=== PATIENT | female | born 1980 | race Caucasian/White ===

== ENCOUNTER 2024-08-01 13:21 | Inpatient (IN) | payer OTHER ==
[2024-08-01] MEDS ORDERED: ACETAMINOPHEN INJECTION 100 ML ONE ×2 (14:38→20:29)
[2024-08-01 16:13] LABS: BASO % 0.5 % (0-2.0); EOS % 0.5 % (0-4.5); HEMATOCRIT 31.7 % (32.4-45.2); HEMOGLOBIN 10.1 GM/dL (10.7-15.3); LYMPH % 23.1 % (8-40); MCH 32.9 pg (25.7-33.7); MEAN CELL VOLUME 102.9 fl (80-96); MEAN PLT VOLUME 7.4 fl (7.5-11.1); MONO % 14.1 % (3.8-10.2); NEUT % 61.8 % (42.8-82.8); PLATELET COUNT 296 10^3/uL (134-434); RBC 3.08 M/mm3 (3.60-5.2); RDW 22.7 % (11.6-15.6); WHITE BLOOD COUNT 5.3 K/mm3 (4.0-10.0)
[2024-08-01] MEDS: SODIUM CHLORIDE 0.9% 500 ML INFUS.BAG IV ONE ×2 (16:22→19:46)
[2024-08-01] MEDS: ACETAMINOPHEN 1000 MG/100 ML BAG IVPB ONE ×2 (16:25→23:40)
[2024-08-01 16:42] LABS: POTASSIUM 3.4 mmol/L (3.5-5.1)
[2024-08-01 16:44] LABS: CALCIUM 8.6 mg/dL (8.5-10.1)
[2024-08-01 16:45] LABS: ALBUMIN 1.9 g/dl (3.4-5.0); BLOOD UREA NITROGEN 4.4 mg/dL (7-18); MAGNESIUM 1.8 mg/dL (1.8-2.4)
[2024-08-01 16:48] LABS: CREATININE 1.3 mg/dL (0.55-1.3); PHOSPHOROUS 2.1 mg/dL (2.5-4.9)
[2024-08-01 16:49] LABS: BILIRUBIN,TOTAL 0.8 mg/dL (0.2-1); TOT PROT 5.9 g/dl (6.4-8.2)
[2024-08-01 16:57] LABS: INR 2.3 (0.83-1.09); PROTHROMBIN TIME (PATIENT) 25.4 SEC (9.7-13.0)
[2024-08-01] MEDS ORDERED: HYDROmorphone HCl 2 MG/ML VIAL ONE (16:59)
[2024-08-01 17:00] LABS: ACTIVATED PTT 44.4 SECONDS (25.2-36.5)
[2024-08-01] MEDS: HYDROmorphone HCl 2 MG/ML VIAL IVPUSH ONE ×2 (17:05→19:32)
[2024-08-01 17:16] LABS: ANISOCYTOSIS 1+; MACROCYTOSIS 1+; TARGET CELLS 1+; TEAR DROP CELLS 1+
[2024-08-01] MEDS ORDERED: MAGNESIUM SULFATE IN WATER 2 GM/50 ML IVPB IVPB ONE (19:39)
[2024-08-01] MEDS ORDERED: KCL 10 MEQ IVPB 10 MEQ/100 ML INFUS.BAG IVPB ONE (19:39)
[2024-08-01] MEDS: MAGNESIUM SULFATE IN WATER 2 GM/50 ML IVPB IVPB ONE (19:46)
[2024-08-01] MEDS ORDERED: guaiFENesin 200 MG/10 ML 10 ML UNIT-DOSE CUPS PO PRN (23:43)
[2024-08-01] MEDS ORDERED: HYDROmorphone HCL 2 MG TABLET PO PRN (23:43)
[2024-08-01] MEDS ORDERED: ONDANSETRON 4 MG TABLET PO PRN (23:43)
[2024-08-01] MEDS: KCL 10 MEQ IVPB 10 MEQ/100 ML INFUS.BAG IVPB SCH (23:58)
[2024-08-02] MEDS ORDERED: HYDROmorphone HCL 2 MG TABLET PO PRN (00:25)
[2024-08-02] MEDS: ACETAMINOPHEN 1000 MG/100 ML BAG IVPB ONE (00:34)
[2024-08-02] MEDS ORDERED: HYDROmorphone HCL 2 MG TABLET ONE (00:36)
[2024-08-02] MEDS ORDERED: MELATONIN 5 MG TABLETS ONE (00:37)
[2024-08-02] MEDS: MELATONIN 5 MG TABLETS PO SCH (00:41)
[2024-08-02] MEDS: HYDROmorphone HCL 2 MG TABLET PO PRN (00:42)
[2024-08-02] MEDS ORDERED: PIPERACILLIN/TAZOB 2.25 GM 2.25 GM in DEXTROSE 5%-WATER - 50 ML IVPB SCH ×2 (02:00→10:00)
[2024-08-02] MEDS: PIPERACILLIN/TAZOB 2.25 GM 2.25 GM in DEXTROSE 5%-WATER - 50 ML IVPB SCH (03:21)
[2024-08-02] MEDS: VANCOMYCIN/WATER FOR INJ (PEG) 1,000 MG/200 ML BAG IVPB ONE (03:23)
[2024-08-02] MEDS ORDERED: VANCOMYCIN/WATER FOR INJ (PEG) 1,000 MG/200 ML BAG IVPB ONE (06:00)
[2024-08-02] MEDS: MEROPENEM 500 MG in DEXTROSE 5%-WATER 100 ML IVPB SCH ×2 (06:39→15:10)
[2024-08-02] MEDS: PANTOPRAZOLE 40 MG TABLET PO SCH (06:47)
[2024-08-02 08:40] LABS: HEMATOCRIT 30.5 % (32.4-45.2); HEMOGLOBIN 9.8 GM/dL (10.7-15.3); MCH 33.1 pg (25.7-33.7); MEAN CELL VOLUME 103.5 fl (80-96); MEAN PLT VOLUME 7.3 fl (7.5-11.1); PLATELET COUNT 263 10^3/uL (134-434); RBC 2.95 M/mm3 (3.60-5.2); RDW 22.6 % (11.6-15.6); WHITE BLOOD COUNT 7.3 K/mm3 (4.0-10.0)
[2024-08-02 08:41] LABS: PROTHROMBIN TIME (PATIENT) 22.5 SEC (9.7-13.0)
[2024-08-02 08:54] LABS: CHLORIDE 102 mmol/L (98-107); SODIUM 135 mmol/L (136-145)
[2024-08-02 09:05] LABS: ALBUMIN 1.8 g/dl (3.4-5.0); ANION GAP 10 mmol/L (4-13); CALCIUM 8.8 mg/dL (8.5-10.1); CO2 23 mmol/L (21-32); MAGNESIUM 2.3 mg/dL (1.8-2.4)
[2024-08-02 09:08] LABS: CREATININE 1.4 mg/dL (0.55-1.3); PHOSPHOROUS 2.8 mg/dL (2.5-4.9); SGOT/AST 30 U/L (15-37); SGPT/ALT 27 U/L (13-61)
[2024-08-02 09:09] LABS: BILIRUBIN,TOTAL 0.9 mg/dL (0.2-1); TOT PROT 5.5 g/dl (6.4-8.2)
[2024-08-02 09:11] LABS: ALK PHOS 158 U/L (45-117); GLUCOSE,RANDOM 49 mg/dL (74-106)
[2024-08-02] MEDS: APIXABAN 5 MG TABLET PO SCH (09:32)
[2024-08-02] MEDS: CLOPIDOGREL BISULFATE 75 MG TABLET (FP) PO SCH (09:32)
[2024-08-02] MEDS: POLYETHYLENE GLYCOL (HEALTHYLAX) 3350 17 GM PACKET PO SCH (09:32)
[2024-08-02] MEDS: LEFLUNOMIDE 10 MG TABLET PO SCH (10:08)
[2024-08-02] MEDS: TACROLIMUS ANHYDROUS 1 MG CAPSULE PO SCH (10:08)
[2024-08-02] MEDS: NORTRIPTYLINE HCL 50 MG CAPSULE PO SCH (10:09)
[2024-08-02] MEDS ORDERED: DEXTROSE 50%-WATER 25 GM/50 ML DISP.SYRIN ONE (10:10)
[2024-08-02] MEDS ORDERED: KCL 20 MEQ PREMIX BAG 20 MEQ/100 ML INFUS.BAG IVPB SCH (10:30)
[2024-08-02] MEDS: ACETAMINOPHEN 1000 MG/100 ML BAG IVPB PRN (10:45)
[2024-08-02] MEDS: KCL 10 MEQ IVPB 10 MEQ/100 ML INFUS.BAG IVPB SCH (10:45)
[2024-08-02] MEDS: DEXTROSE 50%-WATER - 25 GM/50 ML VIAL IVPUSH ONE (10:46)
[2024-08-02] MEDS: TRIMETHOBENZAMIDE HCL 200MG/2ML INJ IM PRN (12:05)
[2024-08-02] MEDS ORDERED: MEROPENEM 500 MG in DEXTROSE 5%-WATER 100 ML IVPB SCH (15:00)
[2024-08-02] MEDS ORDERED: TRIMETHOBENZAMIDE HCL 200MG/2ML INJ IM PRN (16:28)
[2024-08-02] MEDS: POTASSIUM CHLORIDE TABS 20 MEQ TABLET.ER (FP) PO ONE (17:19)
[2024-08-02] MEDS: AMINO ACIDS/PROTEIN HYDROLYS 30 ML LIQUID.PKT PO SCH (17:26)
[2024-08-02] MEDS: COLLAGENASE CLOSTRIDIUM HIST. 30 GRAMS TUBE TP SCH (19:16)
[2024-08-02] MEDS: HYDROmorphone HCl 2 MG/ML VIAL IVPB PRN (23:09)
[2024-08-02] MEDS: TACROLIMUS 0.5 MG CAPSULE PO SCH (23:11)
[2024-08-02] MEDS: ROSUVASTATIN CA 20 MG TABLET PO SCH (23:11)
[2024-08-03] MEDS: MEROPENEM 500 MG in DEXTROSE 5%-WATER 100 ML IVPB SCH (02:15)
[2024-08-03 08:26] LABS: HEMATOCRIT 33.9 % (32.4-45.2); HEMOGLOBIN 11.1 GM/dL (10.7-15.3); MCH 33.7 pg (25.7-33.7); MCHC 32.7 g/dl (32.0-36.0); MEAN CELL VOLUME 102.9 fl (80-96); MEAN PLT VOLUME 7.8 fl (7.5-11.1); PLATELET COUNT 302 10^3/uL (134-434); RDW 22.5 % (11.6-15.6); WHITE BLOOD COUNT 9.5 K/mm3 (4.0-10.0)
[2024-08-03] MEDS: SODIUM CHLORIDE 250 ML IV STA (09:39)
[2024-08-03] MEDS: NORTRIPTYLINE HCL 25 MG CAPSULE PO SCH (09:42)
[2024-08-03] MEDS: ONDANSETRON 4 MG/2 ML VIAL IVPB PRN (12:03)
[2024-08-03] MEDS ORDERED: SODIUM CHLORIDE 250 ML IV PRN (21:53)
[2024-08-04 10:26] LABS: BASO % 1.1 % (0-2.0); EOS % 0.2 % (0-4.5); HEMATOCRIT 29.5 % (32.4-45.2); HEMOGLOBIN 9.4 GM/dL (10.7-15.3); LYMPH % 13.1 % (8-40); MCH 32.9 pg (25.7-33.7); MCHC 31.9 g/dl (32.0-36.0); MEAN CELL VOLUME 103.2 fl (80-96); MEAN PLT VOLUME 7.2 fl (7.5-11.1); MONO % 11.2 % (3.8-10.2); NEUT % 74.4 % (42.8-82.8); PLATELET COUNT 286 10^3/uL (134-434); RBC 2.85 M/mm3 (3.60-5.2); RDW 21.5 % (11.6-15.6)
[2024-08-04 10:52] LABS: POTASSIUM 3.5 mmol/L (3.5-5.1)
[2024-08-04 10:54] LABS: CALCIUM 8.9 mg/dL (8.5-10.1)
[2024-08-04 10:55] LABS: ALBUMIN 1.6 g/dl (3.4-5.0); BLOOD UREA NITROGEN 16.9 mg/dL (7-18)
[2024-08-04 10:57] LABS: CREATININE 2.5 mg/dL (0.55-1.3)
[2024-08-04 10:59] LABS: BILIRUBIN,TOTAL 0.8 mg/dL (0.2-1); TOT PROT 5.2 g/dl (6.4-8.2)
[2024-08-04] MEDS: HYDROmorphone HCl 2 MG/ML VIAL IVPB ONE (17:51)
[2024-08-04] MEDS: PHENYLEPHRINE NS PREMIX 50,000 MCG/500 ML BAG CVP SCH (20:20)
[2024-08-04] MEDS ORDERED: AMIODARONE IN DEXTROSE,ISO-OSM 150 MG/100 ML BAG ONE (20:20)
[2024-08-04] MEDS ORDERED: PHENYLEPHRINE HCL 10 MG/1 ML SINGLE DOSE VIAL ONE (20:21)
[2024-08-04] MEDS: AMIODARONE IN DEXTROSE 150 MG/100 ML PREMIX BAG IVPB ONE (20:25)
[2024-08-04] MEDS: AMIODARONE IN DEXTROSE,ISO-OSM 360 MG/200 ML BAG IV SCH (20:39)
[2024-08-04 22:18] LABS: VENOUS BASE EXCESS -2.4 mmol/L (-2-2); VENOUS O2 SATURATION 77.2 % (70-80); VENOUS PCO2 41.4 mmHg (38-52); VENOUS PH 7.36 (7.310-7.410)
[2024-08-04] MEDS: NOREPINEPHRINE 0.9 % NACL 8 MG/250 ML BAG IVPB SCH (22:40)
[2024-08-04 22:43] LABS: LACTIC ACID 2.4 mmol/L (0.4-2.0)
[2024-08-04] MEDS: MUPIROCIN 2% TOPICAL OINTMENT FOR DECOLONIZATION NS SCH (22:46)
[2024-08-04] MEDS: CHLORHEXIDINE GLUCONATE 4% CLEANSER FOR DECOLONIZATION TP SCH (22:47)
[2024-08-05] MEDS ORDERED: AMIODARONE HCL 150 MG/3 ML VIAL IVPUSH ONE (00:51)
[2024-08-05] MEDS ORDERED: AMIODARONE IN DEXTROSE,ISO-OSM 150 MG/100 ML BAG ONE (01:10)
[2024-08-05] MEDS: AMIODARONE IN DEXTROSE,ISO-OSM 150 MG/100 ML BAG IVPB ONE (01:43)
[2024-08-05] MEDS ORDERED: SODIUM BICARBONATE 8.4% 50 MEQ/50 ML DISP.SYRIN ONE (06:56)
[2024-08-05 06:58] LABS: HEMATOCRIT 31.4 % (32.4-45.2); HEMOGLOBIN 9.9 GM/dL (10.7-15.3); MCH 32.4 pg (25.7-33.7); MCHC 31.5 g/dl (32.0-36.0); MEAN PLT VOLUME 7.3 fl (7.5-11.1); PLATELET COUNT 356 10^3/uL (134-434); RBC 3.05 M/mm3 (3.60-5.2); RDW 22.1 % (11.6-15.6); WHITE BLOOD COUNT 16.5 K/mm3 (4.0-10.0)
[2024-08-05 07:10] LABS: POTASSIUM 3.6 mmol/L (3.5-5.1)
[2024-08-05 07:11] LABS: LACTIC ACID 3.1 mmol/L (0.4-2.0)
[2024-08-05 07:13] LABS: ALBUMIN 1.8 g/dl (3.4-5.0); BLOOD UREA NITROGEN 16.3 mg/dL (7-18); CALCIUM 8.2 mg/dL (8.5-10.1)
[2024-08-05 07:16] LABS: CREATININE 2.4 mg/dL (0.55-1.3)
[2024-08-05 07:17] LABS: PHOSPHOROUS 4.3 mg/dL (2.5-4.9)
[2024-08-05 07:18] LABS: TOT PROT 5.6 g/dl (6.4-8.2)
[2024-08-05 07:21] LABS: N-TERMINAL BNP 20346.5 pg/ml (5-125)
[2024-08-05] MEDS ORDERED: VASopressin 20 UNITS/ML VIAL IV ONE (08:09)
[2024-08-05] MEDS ORDERED: FENTANYL NS IVPB 500 MCG/100 ML BAG IVPB SCH (09:30)
[2024-08-05] MEDS ORDERED: MIDAZOLAM IN 0.9 % SOD.CHLORID 100 MG/100 ML PLAST..BAG IVPB SCH (09:30)
[2024-08-05] MEDS: MIDAZOLAM IN 0.9 % SOD.CHLORID 100 MG/100 ML PLAST..BAG IVPB SCH (09:45)
[2024-08-05] MEDS ORDERED: MIDAZOLAM IN 0.9 % SOD.CHLORID 1 MG/1 ML PLAST..BAG ONE (09:51)
[2024-08-05] MEDS ORDERED: PHENYLEPHRINE HCL 10 MG/1 ML SINGLE DOSE VIAL ONE (09:59)
[2024-08-05] MEDS: VASopressin 40 UNITS/100 ML BAG IV SCH (10:30)
[2024-08-05 10:41] LABS: ANISOCYTOSIS 2+; MACROCYTOSIS 2+
[2024-08-05] MEDS ORDERED: NOREPINEPHRINE BITARTRATE 4 MG/4 ML ML IV ONE (12:18)
[2024-08-05] MEDS: AMIODARONE IN DEXTROSE,ISO-OSM 360 MG/200 ML BAG IVPB ONE (22:57)
[2024-08-06 06:49] LABS: HEMATOCRIT 32.2 % (32.4-45.2); HEMOGLOBIN 9.8 GM/dL (10.7-15.3); MCH 32.9 pg (25.7-33.7); MCHC 30.4 g/dl (32.0-36.0); MEAN CELL VOLUME 108.1 fl (80-96); MEAN PLT VOLUME 7.5 fl (7.5-11.1); PLATELET COUNT 271 10^3/uL (134-434); RBC 2.97 M/mm3 (3.60-5.2); RDW 22.7 % (11.6-15.6); WHITE BLOOD COUNT 23.6 K/mm3 (4.0-10.0)
[2024-08-06 08:25] LABS: MAGNESIUM 1.9 mg/dL (1.8-2.4); PHOSPHOROUS 5.8 mg/dL (2.5-4.9)
[2024-08-06] MEDS: FLUDROCORTISONE ACETATE 0.1 MG TABLET (FP) PO SCH (09:36)
[2024-08-06] MEDS: HYDROCORTISONE SOD SUCCINATE 100 MG/2 ML VIAL IVPUSH ONE ×2 (10:05→11:09)
[2024-08-06 11:09] LABS: ARTERIAL BLD GAS O2 SATURATION 80.3 % (95-98); ARTERIAL BLOOD GAS BASE EXCESS -14.3 mmol/L (-2-2); ARTERIAL BLOOD GAS PO2 57.1 mmHg (80-100)
[2024-08-06 11:11] LABS: ALLENS TEST POSITIVE
[2024-08-06 11:12] LABS: PT'S TEMP 92.2; VENT MODE A/C
[2024-08-06 11:13] LABS: VENT RATE 20
[2024-08-06 11:14] LABS: ARTERIAL BLOOD GAS pH 7.131 (7.350-7.450)
[2024-08-06] MEDS ORDERED: FLUDROCORTISONE ACETATE 0.1 MG TABLET (FP) NGT SCH (11:20)
[2024-08-06 13:44] LABS: POTASSIUM 3.6 mmol/L (3.5-5.1)
[2024-08-06 13:45] LABS: CALCIUM 7.8 mg/dL (8.5-10.1)
[2024-08-06 13:51] LABS: BILIRUBIN,TOTAL 2.1 mg/dL (0.2-1); TOT PROT 4.6 g/dl (6.4-8.2)
[2024-08-06 14:05] LABS: LACTIC ACID 8.5 mmol/L (0.4-2.0)
[2024-08-06 14:06] LABS: ALBUMIN 1.4 g/dl (3.4-5.0); CREATININE 2.4 mg/dL (0.55-1.3)
[2024-08-06 15:52] VITALS: RESP 21
[2024-08-06 16:00] VITALS: BMI 24.6
[2024-08-06] MEDS ORDERED: DEXTROSE 50%-WATER 25 GM/50 ML DISP.SYRIN ONE (18:44)
[2024-08-06] MEDS: HYDROCORTISONE SOD SUCCINATE 100 MG/2 ML VIAL IVPUSH SCH (18:51)
[2024-08-06 19:08] LABS: LACTIC ACID 9.8 mmol/L (0.4-2.0)
[2024-08-06] MEDS ORDERED: SODIUM BICARBONATE 8.4% - 150 MEQ in DEXTROSE 5%-WATER - 950 ML IVPB SCH (19:15)
[2024-08-06] MEDS ORDERED: PHENYLEPHRINE HCL 10 MG/1 ML SINGLE DOSE VIAL ONE (19:21)
[2024-08-06 19:37] VITALS: TEMP 91.1
[2024-08-06 19:46] VITALS: BP 50/29; PULSE 64
== END 2024-08-06 21:47 | disposition expired | DRG 291 ==
LOC: JER 13:21 → JERBED 19:39 → J4W 08-02 02:12 → JICU 08-04 20:00
PROVIDERS: ADMIT Internal Medicine; ATTEND Internal Medicine Pulmonary Disease
PROC: 06HM33Z Insertion of Infusion Device into Right Femoral Vein, Percutaneous Approach (ICD-10-PCS; principal; 2024-08-05)
PROC: B54BZZA Ultrasonography of Right Lower Extremity Veins, Guidance (ICD-10-PCS; 2024-08-05)
PROC: 5A12012 Performance of Cardiac Output, Single, Manual (ICD-10-PCS; 2024-08-05)
PROC: 0BH17EZ Insertion of Endotracheal Airway into Trachea, Via Natural or Artificial Opening (ICD-10-PCS; 2024-08-05)
PROC: 5A1945Z Respiratory Ventilation, 24-96 Consecutive Hours (ICD-10-PCS; 2024-08-05)
PROC: 5A1D70Z Performance of Urinary Filtration, Intermittent, Less than 6 Hours Per Day (ICD-10-PCS; 2024-08-05)
DX: I13.2 Hypertensive heart and chronic kidney disease with heart failure and with stage 5 chronic kidney disease, or end stage renal disease (principal); A41.89 Other specified sepsis; I50.23 Acute on chronic systolic (congestive) heart failure; N18.6 End stage renal disease; R65.21 Severe sepsis with septic shock; J69.0 Pneumonitis due to inhalation of food and vomit; J96.01 Acute respiratory failure with hypoxia; I69.354 Hemiplegia and hemiparesis following cerebral infarction affecting left non-dominant side; Z94.0 Kidney transplant status; I48.92 Unspecified atrial flutter; T86.12 Kidney transplant failure; G93.1 Anoxic brain damage, not elsewhere classified; L89.150 Pressure ulcer of sacral region, unstageable; I25.5 Ischemic cardiomyopathy; I48.0 Paroxysmal atrial fibrillation; I25.2 Old myocardial infarction; E11.22 Type 2 diabetes mellitus with diabetic chronic kidney disease; R93.89 Abnormal findings on diagnostic imaging of other specified body structures; R68.0 Hypothermia, not associated with low environmental temperature; G89.29 Other chronic pain; Z99.2 Dependence on renal dialysis; E87.6 Hypokalemia; I46.9 Cardiac arrest, cause unspecified; I25.10 Atherosclerotic heart disease of native coronary artery without angina pectoris; G40.909 Epilepsy, unspecified, not intractable, without status epilepticus; Z74.01 Bed confinement status; Z99.3 Dependence on wheelchair; Z86.718 Personal history of other venous thrombosis and embolism; Z86.711 Personal history of pulmonary embolism
CPT/HCPCS: 36415; 36600; 71045-TC-FY; 71250-TC; 80053; 82550; 82607; 82746; 82803; 82962; 83036; 83605; 83735; 83880; 84100; 84484; 84703; 85025; 85027; 85610; 85651; 85730; 86140; 86704; 86705; 86803; 87081; 87340; 87517; 87635; 93005; 93010; 93970-TC; 94002; 94660; 99285-25; G0480; J0131; J0282; J3490